=== PATIENT | female | born 1990 | race Caucasian/White ===

== ENCOUNTER 2016-08-12 09:40 | Emergency (ER) | payer OTHER ==
[~2016-08-12] VITALS: Ht 165.1 cm; Wt 53.6 kg
[~2016-08-12 09:40] MED LIST: ATIVAN0.5 MG PO; MOTRIN600 MG PO; NAPROSYN500 MG PO; ORTHO EVRA PA1 PATCH PO; SUBOXONE 8 MG-1 EAC2 SL
[2016-08-12 09:45] VITALS: BP 108/67
== END 2016-08-12 13:05 | disposition left against medical advice (07) ==
LOC: EME 09:40
DX: R51 Headache (principal); Z53.21 Procedure and treatment not carried out due to patient leaving prior to being seen by health care provider